=== PATIENT | female | born 1935 | race Caucasian/White ===

== ENCOUNTER → 2017-03-27 | Outpatient (CLI) | payer OTHER, MEDICARE | LOC: BHFA 08:30 | PROVIDERS: ATTEND Internal Medicine Cardiovascular Disease | DX: R55 Syncope and collapse (principal); I10 Essential (primary) hypertension | CPT/HCPCS: 78452; 93017; A9500; J2785 ==

== ENCOUNTER → 2017-07-09 | Outpatient (CLI) | payer OTHER, MEDICARE | LOC: BHFA 16:15 | PROVIDERS: ATTEND Internal Medicine Cardiovascular Disease | DX: I67.9 Cerebrovascular disease, unspecified (principal) ==

== ENCOUNTER → 2017-08-26 | Outpatient (CLI) | payer OTHER, MEDICARE | LOC: FIMAGING 14:02 | PROVIDERS: ATTEND Internal Medicine | DX: Z12.31 Encounter for screening mammogram for malignant neoplasm of breast (principal) ==

== ENCOUNTER → 2017-11-18 | Outpatient (CLI) | payer OTHER, MEDICARE | LOC: FIMAGING 09:34 | PROVIDERS: ATTEND Physician Assistant | DX: R10.11 Right upper quadrant pain (principal); I70.0 Atherosclerosis of aorta; K76.0 Fatty (change of) liver, not elsewhere classified ==

== ENCOUNTER 2017-11-26 13:23 | Inpatient (IN) | payer OTHER, MEDICARE ==
[2017-11-26] MEDS ORDERED: fentaNYL 100 MCG/2 ML INJ IVP ONE (13:32)
--- NOTE | 2017-11-26 13:55 | EDPHY ---
H & P Time Seen by Provider: 11/26/17 13:55 HPI/ROS: CHIEF COMPLAINT: Right hip injury HISTORY OF PRESENT ILLNESS: Patient lost her balance in the garage when her leg got caught on a table, and she fell landing on her right hip. Pain immediately after the fall, moderate at rest but severe with any movement. Unable to stand. Denies other injuries or head injury or loss of consciousness. Pain does not radiate not associated with weakness or numbness in the right foot. REVIEW OF SYSTEMS: Eye: no change in vision ENT: no sore throat Cardiac: no chest pain or syncope Pulmonary: no cough or SOB Abdomen: no vomiting, diarrhea, abdominal pain Musculoskeletal: HPI, previous neuropathy unchanged Skin: no rash Neuro: no headache Constitutional: no fever : no urinary symptoms A comprehensive 10 point review of systems is otherwise negative aside from elements mentioned in the history of present illness. PAST MEDICAL HISTORY: Hypertension and neuropathy Social history: here with 36.3 Temp General Appearance: Alert and conversant, cooperative. Eyes: No scleral icterus. ENT, Mouth: Normal mucous membranes. Respiratory: Normal respiratory effort, breath sounds equal, lungs are clear to auscultation. Cardiovascular: Regular rate and rhythm. Gastrointestinal: Abdomen is soft and non tender. Neurological: Alert, face symmetric, normal motor and sensory in extremities. Specifically normal motor sensory and dorsalis pedis pulse in the right foot. Skin: No bruising or laceration over the hip. Musculoskeletal: No midline spinal tenderness. Normal extremities including right knee lower tib-fib and ankle and foot except for the right hip which has tenderness to any rotation or axial loading. Pelvis is stable. Psychiatric: Not agitated. Emergency Department course/MDM: 1400: PCPs Kam, x-rays reviewed with the patient on the computer system, she does not have a primary orthopedist. The last had a banana some coffee and water at 10:00 a.m. Admission hospitalist, NPO, Dr. Hall orthopedic consultation. Smoking Status: Never smoked Constitutional: Initial Vital Signs Heart Rate 77 11/26/17 13:29 Respiratory Rate 18 11/26/17 13:29 Blood Pressure 173/85 H 11/26/17 13:29 O2 Sat (%) 95 11/26/17 13:29 O2 Delivery Mode Room Air O2 (L/minute) 2 Allergies/Adverse Reactions: environmental Allergy (Uncoded 05/03/09 12:16) Home Medications: Medication Instructions Recorded Duloxetine HCl [Duloxetine HCl] 60 mg PO DAILY 11/26/17 Levothyroxine Sodium 75 mcg PO DAILY 11/26/17 [Levothyroxine Sodium] Olmesartan Medoxomil [Benicar 20 20 mg PO DAILY 11/26/17 mg (*)] Rosuvastatin Calcium [Rosuvastatin 5 mg PO DAILY 11/26/17 Calcium] Medical Decision Making - Diagnostics EKG Interpretation: 12-lead EKG interpreted by me; official reading is in trace master. My interpretation is sinus rhythm rate 81 and normal intervals. Imaging Results: Imaging Impressions Hip X-Ray 11/26/17 13:33 Impression: Right femoral neck fracture with varus angulation. Displaced right femoral neck fracture on x-ray personally interpreted. Imaging: I viewed and interpreted images myself Differential Diagnosis: Differential considered including but not limited to hip contusion, pelvic fracture, hip dislocation, femoral neck fracture. Consult/Admit Bed Type: [place] 1405, [facility] 1414 - Data Points Medications Given: Discontinued Medications Fentanyl (Sublimaze) 100 mcg IVP EDNOW ONE Stop: 11/26/17 13:33 Last Admin: 11/26/17 13:33 Dose: 100 mcg Hydromorphone HCl (Dilaudid) 1 mg IVP EDNOW ONE Stop: 11/26/17 14:07 Last Admin: 11/26/17 14:14 Dose: 1 mg Hydromorphone HCl (Dilaudid) 1 mg IVP EDNOW ONE Stop: 11/26/17 15:00 Last Admin: 11/26/17 15:03 Dose: 1 mg Ondansetron HCl (Zofran) 4 mg IVP EDNOW ONE Stop: 11/26/17 14:07 Last Admin: 11/26/17 14:14 Dose: 4 mg Departure - Departure Disposition: [facility] Acute Clinical Impression: Displaced fracture of right femoral neck Condition: Good
[2017-11-26] MEDS ORDERED: HYDROmorphONE/DILAUDID 1 MG/ML INJ IVP ONE ×2 (14:06→14:59)
[2017-11-26] MEDS ORDERED: ONDANSETRON 4 MG/2 ML VIAL IVP ONE (14:06)
[2017-11-26] MEDS ORDERED: ACETAMINOPHEN 325 MG TAB PO PRN (14:16)
[2017-11-26] MEDS ORDERED: ONDANSETRON 4 MG/2 ML VIAL IVP PRN ×2 (14:16→18:31)
--- NOTE | 2017-11-26 14:38 | CPEKG ---
Heart Rate: 81 RR Interval: 741 P-R Interval: 192 QRSD Interval: 80 QT Interval: 404 QTC Interval: 469 P [place]: 52 QRS [place]: 13 T Wave [place]: 42 EKG Severity - NORMAL ECG - EKG Impression: SINUS RHYTHM Electronically Signed By: Teo Cage 26-Nov-2017 15:05:40
[2017-11-26 14:46] LABS: PLATELET COUNT 242 10^3/uL (150-400)
[2017-11-26 14:56] LABS: INR 0.98 (0.83-1.16); PROTIME(PATIENT) 13.2 SEC (12.0-15.0)
--- NOTE | 2017-11-26 15:09 | GHP ---
[f rep st] HISTORY AND PHYSICAL DATE OF ADMISSION: 11/26/2017 CHIEF COMPLAINT: Displaced right hip fracture. 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 She was in he [employer] garage today, which she stated was cluttered and tripped over the leg of a table. She fell on her right hip and instantly had pain. Right now she describes it as constant and achy, 7/10. She did no t have loss of consciousness or any other prodromal symptoms including chest pain, shortness of breat h, dizziness, or lightheadedness. She walks 30-45 minutes a day without chest pain or shortness of b reath. REVIEW OF SYSTEMS: I completed a 10-point review of systems, negative except as noted in HPI. PAST MEDICAL HISTORY: 1. Hepatic steatosis on recent ultrasound. 2. Moderate atherosclerotic aorta. 3. Hypertension. 4. Neuropathy. 5. Hyperlipidemia. 6. Left thyroid nodule. 7. Hypothyroidism. 8. Menopause. 9. Moderate plaque bilateral carotids, followed yearly with ultrasound (right with 50%-70% stenosis) . 10. GERD. 11. Nuclear stress test March 2017 negative. PAST SURGICAL HISTORY: Two C-sections. SOCIAL HISTORY: Lives in [place] with her , been over 50 years. Has 3 children. Occ asional alcohol. No tobacco or illicits. FAMILY HISTORY: Mother was healthy, in her 90s. Father healthy. ALLERGIES: No known drug allergies. HOME MEDICATIONS: Aspirin, Benicar 20 mg daily, Crestor 5 mg daily, Cymbalta 30 mg daily, levothyrox ine 75 mcg daily, oxybutynin 5 mg daily. PHYSICAL EXAMINATION: VITAL SIGNS: Temperature 36.3, blood pressure 173/85, heart rate 80s, respira tions 14, 95% on 2 L. GENERAL: Lying in bed, no acute distress. HEENT: PERRLA. EOMI. Moist muco us membranes. CV: Regular rate and rhythm. No murmurs, gallops, or rubs. LUNGS: Clear anteriorly . ABDOMEN: Soft, nontender, nondistended. Positive bowel sounds. : No [place]. MUSCULOSKELETAL: Right leg externally rotated. Tender over her hip. NEURO: 2-12 intact. PSYCH: Alert and orient ed x3. LABORATORY DATA: Pending. ASSESSMENT/PLAN: 1. Right hip fracture due to mechanical fall: Admit for pain control with IV morphine, Dr. Isabel robles Orthopedics will evaluate and likely take to surgery tonight. Scheduled Tylenol. Physical therapy /occupational therapy. 2. Hypertension: This is elevated here secondary to pain. We will resume lisinopril tomorrow. 3. Neuropathy: No history of diabetes. 4. Hyperlipidemia: Statin. 5. Hypothyroidism: Levothyroxine. 6. Moderate carotid bilateral plaque: She is followed by Dr. Rodriguez. She has chosen to follow mo annual ultrasounds. 7. Diet: Nothing by mouth. 8. Deep vein thrombosis prophylaxis: Sequential compression devices. 9. Disposition: Patient warrants inpatient admission given acute hip fracture warranting surgical i ntervention and IV pain control. /[id number]/MODL
[2017-11-26] MEDS ORDERED: LR 1,000 ML IV ONE (15:15)
[2017-11-26] MEDS ORDERED: DEXAMETHASONE 4 MG/ML VIAL IVP ONE (16:15)
[2017-11-26] MEDS ORDERED: FAMOTIDINE 20 MG TAB PO ONE (16:15)
[2017-11-26] MEDS ORDERED: ceFAZolin 2 GM/DEXTROSE 100 ML IV ONE (16:15)
[2017-11-26] MEDS ORDERED: POVIDONE-IODINE 20 ML in SODIUM CL IRRIG SOLUTION 500 ML IRR ONE (16:15)
[2017-11-26] MEDS ORDERED: TRANEXAMIC ACID 1,000 MG in NS 100 ML IV ONE (16:15)
[2017-11-26] MEDS ORDERED: ROPIVACAINE 0.2% 80 MG, EPINEPHrine 0.2 MG, KETOROLAC TROMETHAMINE 30 MG in SYRINGE 0 ML IU ONE (16:15)
[2017-11-26] MEDS ORDERED: POVIDONE-IODINE 30 GM OINTTUBE TP ONE (16:22)
[2017-11-26] MEDS ORDERED: fentaNYL 250 MCG/5 ML INJ ONE (16:54)
[2017-11-26] MEDS ORDERED: PROPOFOL/EMULSION 500 MG/50 ML BOTTLE IV ONE (16:54)
--- NOTE | 2017-11-26 16:54 | GCON ---
[f rep st] CONSULTATION DATE OF CONSULTATION: 11/26/2017 CHIEF COMPLAINT: Right hip pain. HISTORY OF PRESENT ILLNESS: An 82-year-old female with history of hypertension, moderate carotid amaury nosis, hypothyroidism, presents with right hip pain, inability to ambulate after a fall inside her [place] rage. Upon the fall, she had instant pain and inability to weight bear. Pain is constant, 7/10, loc ated to the lateral anterior aspects of the hip. She denies loss of consciousness. She denies fever s, chills, nausea, vomiting, chest pain, shortness of breath, numbness, tingling. She typically walk s 30-45 minutes per day. REVIEW OF SYSTEMS: Ten-point review of systems is negative, except for HPI. PAST MEDICAL HISTORY: As above, including hepatic steatosis, according to recent ultrasound; moderat e atherosclerotic aorta; hypertension; neuropathy; hyperlipidemia; hypothyroidism; carotid stenosis; GERD. PAST SURGICAL HISTORY: Includes a x2. SOCIAL HISTORY: The patient is originally from [facility], her from [place]. They live in [facility] and have been for 50 years. She denies alcohol, tobacco, or drug use. ALLERGIES: No known drug allergies. HOME MEDICATIONS: Include aspirin, Benicar 20 mg daily, Crestor 5 mg a day, Cymbalta 30 mg, levothyr oxine 75 mcg daily, oxybutynin 5 mg daily. PHYSICAL EXAM: VITAL SIGNS: Temperature is 36.3, blood pressure 173/85, heart rate 80s, respiration rate 14, 95% on 2 L. GENERAL: She is lying in the hospital bed, in no acute distress. HEENT: Nor mocephalic, atraumatic. She has easy and nonlabored breathing. ABDOMEN: Soft and nontender. EXTRE MITIES: Her right lower extremity is shortened and externally rotated. She has tenderness over the greater trochanter. Sensation is intact to light touch from L3 to S1. She has motor intact to EHL, FHL, tibialis anterior, gastrocsoleus. She has palpable DP and PT pulses. LABORATORY DATA: Hemoglobin is 14.4, hematocrit 42.6, white blood cell 13.72, platelets 242. IMAGING: X-ray reveals a displaced femoral neck [place] IV fracture. ASSESSMENT/PLAN: An 82-year-old female with a displaced right femoral neck fracture. We discussed t he consequences of operative and nonoperative treatment and the increased morbidity and mortality wit h nonoperative treatment. There is also increased morbidity and mortality after hip fracture in [facility]; however, this is significantly decreased by urgent surgical fixation and weightbearing as quickl y as possible. Risks and benefits of the procedure, the inherent risks of anesthesia, as well as ujanito eris, including bleeding, infection, damage to surrounding anatomic structures, infection, and a tota l joint replacement would likely require additional surgery, one, possibly two. We discussed the pos sibility of sciatic nerve injury and its consequences. Also, the risk of blood clots or DVT. We als o discussed the possibility of dislocation or instability fracture during or after the procedure, leg length discrepancy, Heterotopic ossification, implant allergy. The patient understood and agreed, w ished to proceed. Consent was signed. /[id number]/MODL
--- NOTE | 2017-11-26 16:55 | PDANEPAE ---
ANE History of Present Illness 82 yo for elsa ANE Past Medical History - Cardiovascular History Hx Hypertension: Yes Hx Arrhythmias: No Hx Chest Pain: No Hx Coronary Artery / Peripheral Vascular Disease: No Hx CHF / Valvular Disease: No Hx Palpitations: No - Pulmonary History Hx COPD: No Hx Asthma/Reactive Airway Disease: No Hx Recent Upper Respiratory Infection: No Hx Oxygen in Use at Home: No Hx Sleep Apnea: No - Neurologic History Hx Cerebrovascular Accident: No Hx Seizures: No Hx Dementia: No - Endocrine History Hx Diabetes: No - Renal History Hx Renal Disorders: No - Liver History Hx Hepatic Disorders: No - Neurological & Psychiatric Hx Hx Neurological and Psychiatric Disorders: No - Cancer History Hx Cancer: Yes Cancer History Comment: uterine cancer with hysterectomy - Congenital Disorder History Hx Congenital Disorders: No - GI History Hx Gastrointestinal Disorders: Yes Gastrointestinal History Comment: acid reflux & no meds - Surgical History Prior Surgeries: hysterectomy 20 years agol. 2 c-sections. bilat cataract surgeries approx 2007 ANE Review of Systems Review of Systems: - Exercise capacity METS (RN): 4 METS ANE Patient History - Allergies Allergies/Adverse Reactions: environmental Allergy (Uncoded 05/03/09 12:16) - Home Medications Home Medications: Duloxetine HCl [Duloxetine HCl] 60 mg PO DAILY 11/26/17 [Last Taken 11/26/17] Levothyroxine Sodium [Levothyroxine Sodium] 75 mcg PO DAILY 11/26/17 [Last Taken 11/26/17] Olmesartan Medoxomil [Benicar 20 mg (*)] 20 mg PO DAILY 11/26/17 [Last Taken ] Rosuvastatin Calcium [Rosuvastatin Calcium] 5 mg PO DAILY 11/26/17 [Last Taken 11/26/17] - NPO status NPO Since - Liquids (Date): 11/26/17 NPO Since - Liquids (Time): 10:00 NPO Since - Solids (Date): 11/26/17 NPO Since - Solids (Time): 10:00 - Smoking Hx Smoking Status: Never smoked ANE Labs/Vital Signs - Labs Result Diagrams: 11/26/17 14:30 11/26/17 14:30 - Vital Signs Blood Pressure: 162/77 Heart Rate: 91 Respiratory Rate: 16 O2 Sat (%): 93 Height: 5 ft 4 in Weight: 65.317 kg ANE Physical Exam - Airway Mallampati Score: Class 2 Mouth exam: normal dental/mouth exam - Pulmonary Pulmonary: no respiratory distress - Cardiovascular Cardiovascular: regular rate and rhythym ANE Anesthesia Plan Anesthesia Plan: general endotracheal anesthesia
[2017-11-26] MEDS: ceFAZolin 1 GM/5 ML SYR ONE ×2 (17:45→17:50)
[2017-11-26] MEDS ORDERED: NALOXONE HCL 0.4 MG/ML INJ IVP PRN (18:31)
[2017-11-26] MEDS ORDERED: fentaNYL 100 MCG/2 ML INJ IVP PRN (18:31)
[2017-11-26] MEDS ORDERED: HYDROmorphONE/DILAUDID 2 MG/ML INJ IVP PRN (18:31)
[2017-11-26] MEDS ORDERED: PROMETHAZINE HCL 25 MG/ML INJ IVP PRN (18:44)
[2017-11-26] MEDS ORDERED: CYCLOBENZAPRINE 10 MG TAB PO PRN (18:44)
[2017-11-26] MEDS ORDERED: MAGNESIUM HYDROXIDE 30 ML UDCUP PO PRN (18:44)
[2017-11-26] MEDS ORDERED: oxyCODONE IR 5 MG TAB PO PRN (18:44)
[2017-11-26] MEDS ORDERED: diphenhydrAMINE 25 MG CAP PO PRN (18:44)
[2017-11-26] MEDS ORDERED: TEMAZEPAM 15 MG CAP PO PRN (18:44)
[2017-11-26] MEDS ORDERED: DIPHENOXYLATE/ATROPINE LOMOTIL 1 TAB PO PRN (18:44)
[2017-11-26] MEDS ORDERED: LACTULOSE 20 GM/30 ML UDCUP PO PRN (18:44)
[2017-11-26] MEDS ORDERED: POLYETHYLENE GLYCOL 3350 17 GM PKT PO PRN (18:44)
[2017-11-26] MEDS ORDERED: BISACODYL 10 MG SUPP PR PRN (18:44)
--- NOTE | 2017-11-26 18:49 | POSTOPPROG ---
Post Op Note Date of Operation: 11/26/17 Surgeon: Jim Hall Director Of Academic: Mitchell Headley MD, Jayy Messer CSA Anesthesiologist: David THURSTON Anesthesia: GET(General Endotracheal) Pre-op Diagnosis: R hip femoral neck fracture Post-op Diagnosis: same Procedure: R posterior approach JASS Inf/Abcess present in the surg proc area at time of surgery?: No EBL: 100-500 (300) Complications: none
[2017-11-26] MEDS ORDERED: LR 1,000 ML IV SCH (19:00)
[2017-11-26] MEDS ORDERED: fentaNYL 100 MCG/2 ML INJ ONE (19:40)
[2017-11-27] MEDS: ACETAMINOPHEN 325 MG TAB PO SCH ×5 (00:06→22:14)
[2017-11-27] MEDS: FAMOTIDINE 20 MG TAB PO SCH ×3 (00:39→22:14)
[2017-11-27] MEDS: ASPIRIN 81 MG CHEWABLE TAB PO SCH ×3 (00:39→22:14)
[2017-11-27] MEDS: SENNOSIDES/DOCUSATE SODIUM TAB PO SCH ×3 (00:41→22:14)
[2017-11-27] MEDS: ceFAZolin 2 GM/DEXTROSE 100 ML IV SCH ×2 (02:01→11:26)
[2017-11-27] MEDS ORDERED: NS 1,000 ML IV SCH (08:00)
[2017-11-27] MEDS ORDERED: ROSUVASTATIN CALCIUM 5 MG PO SCH (09:00)
--- NOTE | 2017-11-27 09:42 | PDMN ---
Medical Necessity Medical necessity: Pt meets IP criteria per MD; est los >2 mn for eval/tx of R hip fx r/t mechanical fall; admit for surgical intervention, further monitoring , IV pain control, IVFs & therapies; hx HTN, neuropathy & moderate carotid bilateral plaque; per H&P & order 11/26/17
[2017-11-27] MEDS: DULoxetine 60 MG CAP PO SCH (11:22)
[2017-11-27] MEDS: ROSUVASTATIN CALCIUM 10 MG TAB PO SCH (11:22)
[2017-11-27] MEDS: LEVOTHYROXINE 75 MCG TAB PO SCH (11:40)
--- NOTE | 2017-11-27 12:49 | ASMTCASEMG ---
Living Arrangements What is your living Answers: With Spouse arrangement? Who do you live with? Type Of Residence What kind of residence do Answers: House you live in? Discharge Plan Comments Coordination Status Comments Notes: Pt is a 82 y/o female admitted for a right femoral neck fracture. CM met w/ pt and for dispo planning. PT is recommending HC. Pt would like CM to set up HC through [facility]. Referral made to [facility] and they are able to accept. CM to follow. Plan: [facility]; PT, OT Date Signed: 11/27/2017 12:49 PM Electronically Signed By:JULIO CESAR Bui
--- NOTE | 2017-11-27 14:05 | HOSPPROG ---
Hospitalist Progress Note Assessment/Plan: Patient is an 82-year-old female with a history of hypertension, moderate carotid stenosis who presented with right hip pain after she sustained a mechanical fall. It was noted that she has displaced right hip fracture * right femoral neck fracture -postop day # 1 JASS * hypertension -had some hypotension this morning and gave fluids -hold Benicar * hyperlipidemia -statin * hypothyroidism -Synthroid * moderate carotid bilateral plaque -followed by Dr. Rodriguez *dvt prophylaxis: LMWH *Plan: patient feels great, wants to go home. Encouraged to stay another night, check labs in a.m. to assure stability. Spoke w CM that she will need home care. Subjective: Lilly feels great, wants to go home. Objective: Vital Signs Temp Pulse Resp BP Pulse Ox 36.7 C 81 16 118/47 L 92 11/27/17 11:25 11/27/17 11:25 11/27/17 11:25 11/27/17 11:25 11/27/17 11:25 Laboratory Results 11/27/17 04:50 11/26/17 14:30 11/26/17 11/27/17 11/28/17 05:59 05:59 05:59 Intake Total 2070 Output Total 400 Balance 1670 PT 13.2 SEC (12.0-15.0) 11/26/17 14:30 INR 0.98 (0.83-1.16) 11/26/17 14:30 - Physical Exam Constitutional: no apparent distress, appears nourished, not in pain Eyes: PERRL Ears, Nose, Mouth, Throat: hearing normal Cardiovascular: regular rate and rhythym Respiratory: no respiratory distress Gastrointestinal: normoactive bowel sounds Skin: warm, No normal color (pale) Musculoskeletal: generalized weakness Neurologic: AAOx3 Psychiatric: interacting appropriately ICD10 Worksheet Patient Problems: Problems Problem Status Onset Displaced fracture of right femoral neck Acute
--- NOTE | 2017-11-27 14:50 | SOAPPROG ---
SOAP Progress Note Assessment/Plan: Assessment: Postop day 1 status post right posterior approach total hip arthroplasty for femoral neck fracture Plan: Weight bear as tolerated with assistance, PT OT Posterior hip precautions Analgesics as needed, wean off narcotics as tolerated IS 10 times per hour SCD, foot pump, aspirin 81mg BID for DVT prophylaxis, we will consider Lovenox if patient's mobility status decreases Dispo: Possible DC home with home health tomorrow 11/27/17 14:46 Subjective: No acute events overnight. Significantly less pain decreased from yesterday to today. she has been ambulating multiple times today in the hallways with a walker. Denies fevers chills nausea vomiting chest pain shortness of breath numbness or tingling Objective: Vital Signs Temp Pulse Resp BP Pulse Ox 36.7 C 81 16 118/47 L 92 11/27/17 11:25 11/27/17 11:25 11/27/17 11:25 11/27/17 11:25 11/27/17 11:25 Laboratory Results 11/27/17 04:50 11/26/17 14:30 11/26/17 11/27/17 11/28/17 05:59 05:59 05:59 Intake Total 2070 Output Total 400 Balance 1670 PT 13.2 SEC (12.0-15.0) 11/26/17 14:30 INR 0.98 (0.83-1.16) 11/26/17 14:30 Awake alert and oriented x3 No acute distress Easy nonlabored breathing Right hip: Dressing clean dry intact no erythema drainage or signs of infection Mild ecchymosis since swelling Thigh and calf compartments soft compressible nontender Sensation intact to light touch from L3-S1 Motor intact to EHL FHL tibialis at tibialis anterior gastrocsoleus Palpable DP PT pulses - Time Spent With Patient Time Spent With Patient: 15 - Pending Discharge Pending Discharge Within 24 Hours: Yes Pending Discharge Date: 11/28/17 Pending Discharge Time: 11:00 ICD10 Worksheet Patient Problems: Problems Problem Status Onset Displaced fracture of right femoral neck Acute
[2017-11-28] MEDS: LEVOTHYROXINE 75 MCG TAB PO SCH (05:49)
[2017-11-28] MEDS: ACETAMINOPHEN 325 MG TAB PO SCH ×3 (05:49→22:24)
[2017-11-28] MEDS: DULoxetine 60 MG CAP PO SCH (08:39)
[2017-11-28] MEDS: ROSUVASTATIN CALCIUM 10 MG TAB PO SCH (08:39)
[2017-11-28] MEDS: ASPIRIN 81 MG CHEWABLE TAB PO SCH ×2 (08:39→22:24)
[2017-11-28] MEDS: SENNOSIDES/DOCUSATE SODIUM TAB PO SCH ×3 (08:40→22:28)
[2017-11-28] MEDS: FAMOTIDINE 20 MG TAB PO SCH (08:41)
[2017-11-28] MEDS ORDERED: ENOXAPARIN 30 MG/0.3 ML SYR SC SCH (09:00)
--- NOTE | 2017-11-28 09:20 | SOAPPROG ---
SOAP Progress Note Assessment/Plan: Assessment: Postop day 2 status post right posterior approach total hip arthroplasty for femoral neck fracture Plan: Weight bear as tolerated with assistance, PT OT Posterior hip precautions Analgesics as needed, wean off narcotics as tolerated IS 10 times per hour SCD, foot pump, aspirin 81mg BID for DVT prophylaxis Dispo: Possible DC home with home health/PT today 11/27/17 14:46 11/28/17 09:17 Subjective: No acute events overnight. Having slightly more pain today than yesterday. Ambulating very well with physical therapy still. But it is still significantly improved from initial injury. Has not had a bowel movement. Denies fevers chills nausea vomiting chest pain shortness of breath numbness tingling. Objective: Vital Signs Temp Pulse Resp BP Pulse Ox 36.6 C 74 16 97/42 L 96 11/28/17 04:00 11/28/17 04:00 11/28/17 04:00 11/28/17 04:00 11/28/17 04:00 Laboratory Results 11/28/17 04:15 11/28/17 04:15 11/27/17 11/28/17 11/29/17 05:59 05:59 05:59 Intake Total 2070 1000 Output Total 400 Balance 1670 1000 PT 13.2 SEC (12.0-15.0) 11/26/17 14:30 INR 0.98 (0.83-1.16) 11/26/17 14:30 Awake alert and oriented x3, no acute distress Easy nonlabored breathing Right hip: Dressing clean dry intact no erythema drainage or signs of infection Mild ecchymosis at distal aspect of incision, minimal swelling Thigh and calf compartments soft compressible nontender Sensation intact to light touch from L3-S1 Motor intact to EHL FHL tibialis anterior gastrocsoleus Palpable DP PT pulses - Time Spent With Patient Time Spent With Patient: 15 ICD10 Worksheet Patient Problems: Problems Problem Status Onset Displaced fracture of right femoral neck Acute
--- NOTE | 2017-11-28 10:37 | HOSPPROG ---
Hospitalist Progress Note Assessment/Plan: Patient is an 82-year-old female with a history of hypertension, moderate carotid stenosis who presented with right hip pain after she sustained a mechanical fall. It was noted that she has displaced right hip fracture. This is my first encounter with patient. Chart reviewed. * right femoral neck fracture -postop day #2 JASS -pt is noting difficulty getting up on her own without assistance and does not feel she can navigate stairs -she will stay for ongoing PT/OT and possible placement * hypertension -Benicar on hold due to some hypotensive readings -not dizzy or presyncopal *fall -had a fall off the toilet last night due to gait instability -needs ongoing PT/OT * hyperlipidemia -statin * hypothyroidism -Synthroid * moderate carotid bilateral plaque -followed by Dr. Rodriguez -ASA and statin *dvt prophylaxis: ortho prefers only ASA *ADD -will keep inpatient due to fall, low BP, and gait instability requiring inpatient PT/OT Subjective: Pain controlled with APAP. Not dizzy or dyspneic. Objective: Vital Signs Temp Pulse Resp BP Pulse Ox 97.9 F 83 16 99/43 L 96 11/28/17 04:00 11/28/17 10:21 11/28/17 04:00 11/28/17 10:21 11/28/17 04:00 Laboratory Results 11/28/17 04:15 11/28/17 04:15 11/27/17 11/28/17 11/29/17 05:59 05:59 05:59 Intake Total 2070 1000 Output Total 400 Balance 1670 1000 PT 13.2 SEC (12.0-15.0) 11/26/17 14:30 INR 0.98 (0.83-1.16) 11/26/17 14:30 - Physical Exam Constitutional: no apparent distress, not in pain Eyes: anicteric sclera Ears, Nose, Mouth, Throat: moist mucous membranes Cardiovascular: regular rate and rhythym, no murmur, rub, or gallop Respiratory: no respiratory distress, no rales or rhonchi Gastrointestinal: normoactive bowel sounds, other (mild distention) Skin: warm, normal color Neurologic: AAOx3 Psychiatric: interacting appropriately, not anxious ICD10 Worksheet Patient Problems: Problems Problem Status Onset Displaced fracture of right femoral neck Acute
--- NOTE | 2017-11-28 14:43 | CPEKG ---
Heart Rate: 82 RR Interval: 732 P-R Interval: 172 QRSD Interval: 86 QT Interval: 392 QTC Interval: 458 P [place]: 56 QRS [place]: 24 T Wave [place]: 63 EKG Severity - ABNORMAL ECG - EKG Impression: SINUS RHYTHM EKG Impression: BORDERLINE T ABNORMALITIES, ANT-LAT LEADS Electronically Signed By: Robert Hernandez 30-Nov-2017 10:25:06
[2017-11-29] MEDS: FAMOTIDINE 20 MG TAB PO SCH ×2 (00:26→09:52)
[2017-11-29] MEDS: ONDANSETRON DISINTEGRATING 4 MG TAB PO PRN ×3 (05:45→16:12)
[2017-11-29] MEDS: LEVOTHYROXINE 75 MCG TAB PO SCH (06:39)
[2017-11-29] MEDS: ACETAMINOPHEN 325 MG TAB PO SCH ×2 (06:40→15:21)
[2017-11-29 07:54] VITALS: BP 99/59
--- NOTE | 2017-11-29 09:31 | SOAPPROG ---
SOAP Progress Note Assessment/Plan: Assessment: Postop day 3 status post right posterior approach total hip arthroplasty for femoral neck fracture Plan: Negative Cardiac work-up yesterday. Pt feeling well. Weight bear as tolerated with assistance, PT OT Posterior hip precautions Analgesics as needed, wean off narcotics as tolerated IS 10 times per hour SCD, foot pump, aspirin 81mg BID vs Lovenox 40mg Daily for DVT prophylaxis pending overall risk assessment Dispo: Possible DC to SNF/[facility] today 11/29/17 09:26 Subjective: No acute events overnight. Patient admits she did not disclose that she slipped off the toilet two days ago. Says it was nothing like the fall she had that broke her hip but she did have difficulty getting back up. yesterday patient had a workup for nonspecific chest pain. Patient states she did not have chest pain specifically but overall felt "lousy." Did have some nausea which improved with cheyenne ofelia. Feeling well today. Pain much improved. States she is ambulating very well with physical therapy and a walker. Denies fevers chills chest pain shortness of breath numbness tingling Objective: Vital Signs Temp Pulse Resp BP Pulse Ox 37.2 C 82 16 99/59 L 92 11/29/17 07:53 11/29/17 07:53 11/29/17 07:53 11/29/17 07:53 11/29/17 07:53 Laboratory Results 11/28/17 04:15 11/28/17 04:15 11/28/17 11/29/17 11/30/17 05:59 05:59 05:59 Intake Total 1000 1700 Balance 1000 1700 PT 13.2 SEC (12.0-15.0) 11/26/17 14:30 INR 0.98 (0.83-1.16) 11/26/17 14:30 Awake alert and oriented x3, no acute distress Easy nonlabored breathing Right hip: Dressing clean dry intact no erythema drainage or signs of infection Mild ecchymosis at distal aspect of incision, minimal swelling Thigh and calf compartments soft compressible nontender Sensation intact to light touch from L3-S1 Motor intact to EHL FHL tibialis anterior gastrocsoleus Palpable DP PT pulses - Time Spent With Patient Time Spent With Patient: 10 ICD10 Worksheet Patient Problems: Problems Problem Status Onset Displaced fracture of right femoral neck Acute
[2017-11-29] MEDS: DULoxetine 60 MG CAP PO SCH (09:52)
[2017-11-29] MEDS: ASPIRIN 81 MG CHEWABLE TAB PO SCH (09:52)
[2017-11-29] MEDS: ROSUVASTATIN CALCIUM 10 MG TAB PO SCH (09:53)
[2017-11-29] MEDS: SENNOSIDES/DOCUSATE SODIUM TAB PO SCH ×2 (09:53→11:02)
--- NOTE | 2017-11-29 10:41 | PDIAF ---
- Diagnosis Code Status: Full Code - Medication Management Discharge Medications: Medications to Continue on Transfer Duloxetine HCl 60 mg PO DAILY 11/26/17 [Last Taken 11/26/17] Levothyroxine Sodium 75 mcg PO DAILY 11/26/17 [Last Taken 11/26/17] Rosuvastatin Calcium 5 mg PO DAILY 11/26/17 [Last Taken 11/26/17] Acetaminophen [Tylenol 325mg (*)] 650 mg PO Q8H tab 11/29/17 [Last Taken Unknown] Aspirin [Aspirin 81mg (*)] 81 mg PO BID tab.chew 11/29/17 [Last Taken Unknown] Famotidine [Pepcid 20 MG (*)] 20 mg PO BID tab 11/29/17 [Last Taken Unknown] Ondansetron Odt [Zofran Odt 4 mg (*)] 4 mg PO Q4HRS PRN #7 tab 11/29/17 [Last Taken Unknown] Sennosides/Docusate Sodium [Senokot-S] 1 - 2 tab PO BID tab 11/29/17 [Last Taken Unknown] celeCOXIB [Celebrex (*)] 200 mg PO DAILY #30 cap 11/29/17 [Last Taken Unknown] Discharge Medications: Refer to the Discharge Home Medication list for PRN reason. - Orders Services needed: Home Care, Physical Therapy, Occupational Therapy Home Care Face to Face: I certify that this patient was under my care and that I had the required wfhs-se-xaoh encounter meeting the encounter requirements on the discharge day. My findings support the fact that the patient is homebound as defined in Home Care Face to Face Continued: CMS Chapter 7 Medicare Benefits Manual 30.1.1 , The condition of the patient is such that there exists a normal inability to leave home and consequently, leaving home would require a considerable and taxing effort. Diet Recommendation: no restrictions on diet Diet Texture: Regular Texture Diet Additional Instructions: see handout, WBAT, posterior hip precautions, f/u 2wks - Follow Up Care Current Providers and Referrals: Patient,NotPresent [Unknown] - As per Instructions Jim Hall MD [Medical Doctor] - follow up in 2 weeks
--- NOTE | 2017-11-29 12:26 | PDIAF ---
- Diagnosis Code Status: Full Code - Medication Management Discharge Medications: Medications to Continue on Transfer Duloxetine HCl 60 mg PO DAILY 11/26/17 [Last Taken 11/26/17] Levothyroxine Sodium 75 mcg PO DAILY 11/26/17 [Last Taken 11/26/17] Rosuvastatin Calcium 5 mg PO DAILY 11/26/17 [Last Taken 11/26/17] Acetaminophen [Tylenol 325mg (*)] 650 mg PO Q8H tab 11/29/17 [Last Taken Unknown] Aspirin [Aspirin 81mg (*)] 81 mg PO BID tab.chew 11/29/17 [Last Taken Unknown] Famotidine [Pepcid 20 MG (*)] 20 mg PO BID tab 11/29/17 [Last Taken Unknown] Ondansetron Odt [Zofran Odt 4 mg (*)] 4 mg PO Q4HRS PRN #7 tab 11/29/17 [Last Taken Unknown] Sennosides/Docusate Sodium [Senokot-S] 1 - 2 tab PO BID tab 11/29/17 [Last Taken Unknown] celeCOXIB [Celebrex (*)] 200 mg PO DAILY #30 cap 11/29/17 [Last Taken Unknown] Discharge Medications: Refer to the Discharge Home Medication list for PRN reason. - Orders Services needed: Physical Therapy, Occupational Therapy Diet Recommendation: no restrictions on diet Diet Texture: Regular Texture Diet Additional Instructions: see handout, WBAT, posterior hip precautions, f/u 2wks - Follow Up Care Current Providers and Referrals: Jim Hall MD [Medical Doctor] - follow up in 2 weeks Patient,NotPresent [Unknown] - As per Instructions
--- NOTE | 2017-11-29 16:27 | GDS ---
[f rep st] DISCHARGE SUMMARY DISCHARGE DIAGNOSES: 1. Right femoral neck fracture, status post mechanical fall, status post total hip replacement. 2. Hypertension with hold of medications in this admission due to some hypotensive readings. 3. Nausea, likely related to medications in this admission, improved at time of discharge. 4. History of moderate carotid arterial disease. 5. Dyslipidemia. 6. Hypothyroidism. 7. History of neuropathy. 8. History of left thyroid nodule. 9. Two prior sections. CONSULTATIONS: Dr. Jim Hall of Orthopedics. PROCEDURES: 1. 11/26/2017, hip x-ray. 2. 11/26/2017, pelvic x-ray. 3. 11/27/2017, right JASS. BRIEF HISTORY: Please see dictated H and P by Dr. Chelsie Jackson for complete details. In brief, Th e patient is an 82-year-old female with a history of hypertension, moderate carotid arterial disease who presented after a mechanical fall, tripping on the leg of a table in her garage. She noted pain in her hip afterwards and was found to have a displaced right hip fracture. She proceeded to surgica l THR. She has been evaluated by PT and OT with recommendations for SNF rehab. She is being transfe rred to [facility] today. HOSPITAL COURSE: 1. Mechanical fall, status post right femoral neck fracture, status post hip replacement. She is gi toni hip precautions and will be participating in PT and OT in the rehab setting. She is to follow up with Dr. Hall in 2 weeks time. 2. Hypertension. Her blood pressures have been low and her home Benicar has been on hold. 3. Mechanical fall. In this admission, she denied any pain with this fall, but had gait instability , which resulted in her falling off the toilet yesterday. 4. Moderate carotid disease. She is to continue her aspirin and statin therapy. RESULTS PENDING: None. PHYSICAL EXAMINATION: VITAL SIGNS: On day of discharge, blood pressure 99/59, heart rate 82, respir ations 16, O2 saturation 92% on 1 L/minute, temp of 98.9 degrees Fahrenheit. GENERAL: She is a plea abdoulaye female in no apparent distress. HEENT: Normocephalic, atraumatic. Eyes: PERRL. HEART: Regu lar rate and rhythm. LUNGS: Clear. LABORATORY DATA: CBC with hemoglobin 10.7, hematocrit 33.4. BMP with sodium 137, potassium 5, chlor guille 109, CO2 21, BUN 32, creatinine 0.9, glucose 116. Troponin less than 0.012. DIET: Per previous. ACTIVITY: PT and OT in the rehab setting. DISCHARGE MEDICATIONS: Please see medication reconciliation. DISCHARGE INSTRUCTIONS: 1. Hip precautions. 2. Follow upwith Dr. Hall. Please note that greater than 30 minutes was spent on discharge, coordination of care. /[id number]/MODL
--- NOTE | 2017-11-29 18:07 | ASMTLACE ---
DANIELLAE Length of stay for Answers: 3 days current admission Acuity / Level of Answers: Yes Care: Did the patient have an inpatient admission? Comorbidities - select Answers: Other Notes: HTN, carotid all that apply stenosis, hyperlipidemi a # of Emergency department Answers: 1-2 visits in the last 6 months Score: 8 Date Signed: 11/29/2017 06:06 PM Electronically Signed By:Lamar Medrano RN
--- NOTE | 2017-11-29 18:15 | ASDISCHSUM ---
Discharge Information Plan Status:SNF Medically Cleared to Leave:11/29/2017 Discharge Date:11/29/2017 CM D/C Disposition:Fdc Facility ADT D/C Disposition:Fdc Facility Projected Discharge Date:11/29/2017 11:00 AM Transportation at D/C:Wheelchair Van Discharge Delay Reason: Follow-Up Date:11/29/2017 11:00 AM Discharge Slot:3 - 18:01 pm - 12:00 am Final Diagnosis:Right femoral neck fracture, HTN, carotid, stenosis, hyperlipidemia, hypothyroid, AD D Placement Information Referral Type:*Home Health Care Services Referral ID:[id number] Provider Name: Address 1: Phone Number: Address 2: Fax Number: City: Selection Factors:Patient/Family Choice State: Referral Type:*Residential/SNF Referral ID:[id number] [facility] Address 1:[address] Phone Number: Address 2: Fax Number: [facility]:[place] Selection Factors: State:[place] Patient Contact Information Contact Name:MAMTA Relationship: Address:[address] Work Phone: City:[facility] Phone: [facility]/Zip Code:[place] [address] Email: Financial Information Financial Class:Medicare Primary Plan Desc:MEDICARE INPATIENT Primary Plan Number:[id number] Secondary Plan Desc:REGINO/DANILO SUPPLEMENT Secondary Plan Number:[id number] Assessment Information LACE LACE Length of stay for Answers: 3 days current admission Acuity / Level of Answers: Yes Care: Did the patient have an inpatient admission? Comorbidities - select Answers: Other Notes: HTN, carotid all that apply stenosis, hyperlipidemi a # of Emergency department Answers: 1-2 visits in the last 6 months Score: 8 Date Signed: 11/29/2017 06:06 PM Electronically Signed By:Lamar Medrano RN [facility] Initial CM Assessment Living Arrangements What is your living Answers: With Spouse arrangement? Who do you live with? Type Of Residence What kind of residence do Answers: House you live in? Discharge Plan Comments Coordination Status Comments Notes: Pt is a 82 y/o female admitted for a right femoral neck fracture. CM met w/ pt and for dispo planning. PT is recommending HC. Pt would like CM to set up HC through [facility]. Referral made to [facility] and they are able to accept. CM to follow. Plan: [facility]; PT, OT Date Signed: 11/27/2017 12:49 PM Electronically Signed By:JULIO CESAR Bui Case Management Discharge Plan Note Case Management Discharge Discharge Order Complete? Answers: Yes Patient to Obtain Answers: Other Notes: via [facility] Medications Transportation Arranged Answers: Other Notes: Wheelchair transport arranged and to be paid for by [employer] Transport will Pick (Date 11/29/2017 07:00 PM & Time) SANDRAALA Complete Answers: No Notes: N/A Case Management Transport Answers: Yes Form Complete Faxed Final Orders Answers: Yes Notes: Sent via [employer], confirmed receipt with Carolina at [employer] Agency/Facility Transfer Answers: Yes Notes: Sent via Report Printed & Faxed to [employer], confirmed Receiving Agency receipt with Carolina at [employer] Family Notified Answers: Yes Notes: Dghtr and at bedside Discharge Comments Notes: Reviewed chart, spoke with Zandra RN regarding discharge plan of care, pt's progress. Per Zandra, pt to discharge home with home health care today and family support. Call placed to Scot at [facility]. Per Scot, able to accept pt for a start of care on Thursday11/30/17. Met with pt and family to provide update. Pt's requesting pt discharge to a SNF today. Discussed with Azalea Khanna PA-C; orders changed. Referrals sent to [facility], [facility], [facility], [facility] and [facility] at pt and family request. Spoke at length with pt's dghtr. Family requesting [facility] for ease of access to [facility]. Call placed to [facility] at [facility], per [facility] bed available, able to accept. [facility] to arrange and pay for wheelchair transport. Transport to arrive at 19:00; facesheet printed for driver license agent. Update provided to pt and pt's dghtr Susan . Pt and dghtr with several questions regarding transfer - questions answered. IM signed, placed in chart; copy provided to pt. Pt to follow up as directed. CM available for any further issues or concerns. Discharge Plan: [facility] Date Signed: 11/29/2017 06:14 PM Electronically Signed By:Lamar Medrano RN Intervention Information Intervention Type:*IM-Signed Date of Service:11/29/2017 06:05 PM Patient Type:Inpatient Staff Member:IVETTE Medrano Taylor Hours: Discipline: Severity: Comment:
--- NOTE | 2017-12-03 11:35 | GOP ---
[f rep st] OPERATIVE REPORT DATE OF OPERATION: 11/26/2017 SURGEON: Jim Hall MD METAL NUMERICAL TOOL PROGRAMMER: habilitation assistant, Mitchell Headley MD Second assist, Jayy Messer CFA Assistants were required due to the complexity of the case, the patient's condition, for positioning, prepping and draping, retraction and closure. ANESTHESIA: General. PREOPERATIVE DIAGNOSIS: Right displaced femoral neck fracture. POSTOPERATIVE DIAGNOSIS: Right displaced femoral neck fracture. PROCEDURE PERFORMED: Left posterior approach total hip arthroplasty. FINDINGS: SPECIMENS: None. ESTIMATED BLOOD LOSS: 300 cc. INDICATIONS: Patient had a mechanical fall landing on her right hip sustaining a displaced femoral n bienvenido fracture. We discussed in depth operative versus nonoperative treatments, as well as options for operative treatments. Decision was made to proceed with posterior approach total hip arthroplasty t o decrease the risk of morbidity and mortality. Patient understands that hip fracture increases thes e risks within the first year regardless of surgery, but are significantly decreased by having surger y and mobilizing as soon as possible. The patient verbalized understanding of the risks and benefits of procedure, signed informed consent. DESCRIPTION OF PROCEDURE: The patient was seen in the holding area. Operative consent and site were signed. The patient was then taken the operating room. After smooth induction of general anesthesi a, was placed in the lateral decubitus position with the affected hip facing up using pegboard and ax illary roll. The affected hip was prepped and draped in usual sterile fashion. Operative site was c onfirmed by signature. Operative time-out performed. Allergies reviewed. Antibiotics and TXA admin istered. Palpable landmarks, including the greater trochanter were marked out. A longitudinal incision made over the posterior aspect of the greater trochanter. This was carried t hrough the subcutaneous tissue to identify fascia jd, which was incised in line with the incision a nd the gluteus peri was bluntly split. The trochanteric bursa was taken down with Bovie electroca utery. Short external rotators were put on stretch, and the capsulotomy was taken in layers from the insertion of the femur and tagged with FiberWires. Hematoma was evacuated. The femoral head was th en removed. Neck cut was then freshened with an oscillating saw. The femur was exposed in standard fashion. Excess soft tissue was removed from the piriformis fossa using Bovie, and excess neck was r emoved using a box osteotome. Sequential broaching was performed up to the desired sized broach, whi ch had good fit and fill. Trial stem was left in place. The acetabulum was then exposed in standard fashion. The labrum was sharply excised. Ligamentum ter es and acetabular fossa tissue excised with Bovie. Transverse acetabular ligament was identified and preserved. Sequential reaming was performed at the base of the acetabular fossa, sequentially reami ng up to a size 51 for a size 52 cup. The 51 trial was placed prior to final implantation of the 52 mm acetabular shell. Attention was then turned back to the femur. High offset neck trial with 0 and -4 trial combinations were tried, checking stability, motion, and estimated leg length. Final compo nents were determined to be size 5 stem, 127 degree neck angle with a 0 mm head. The final polyethyl kimmie insert with a 10 degree posterior lip liner was impacted into place after irrigating the acetabul ar shell. Final components were then placed. Stability and motion were again confirmed. The capsul e and external rotators were repaired with the 2 drill holes in the greater trochanter. Soft tissues were infiltrated with joint cocktail. Wound was then closed in layers with PDS Quill suture in the fascia jd, 0 PDS Quill suture in the deep subcutaneous fat, and 3-0 Versalok in the dermis. Dermab ond, Steri-Strips were applied, as well as a sterile silver dressing. A hip abduction pillow was [place] between the patient's legs. She was safely awakened, extubated, and taken to recovery room in st able condition. All critical portions of procedure were performed myself, Dr. Hall. This operative note was created by myself, Dr. Hall. I was immediately available for emergency cross-coverage at all times. DRAINS: None. COMPLICATIONS: None. IMPLANTS: Trident II 52 mm acetabular shell with a 36 mm polyethylene insert with a 10 degree chargemaster analyst ior lip liner, Accolade II femoral stem size 5, 127 degrees angle, with 0 mm ceramic V40 femoral head . 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 /[id number]/MODL
== END 2017-11-29 18:43 | DRG 470 ==
LOC: EDUNIT# → UNDOADMIN 14:10 → F3N 20:40
PROVIDERS: ADMIT Internal Medicine; ATTEND Internal Medicine
PROC: 0SR904A Replacement of Right Hip Joint with Ceramic on Polyethylene Synthetic Substitute, Uncemented, Open Approach (ICD-10-PCS; principal; 2017-11-26 16:30)
DX: S72.031A Displaced midcervical fracture of right femur, initial encounter for closed fracture (principal); W01.0XXA Fall on same level from slipping, tripping and stumbling without subsequent striking against object, initial encounter; Y92.015 Private garage of single-family (private) house as the place of occurrence of the external cause; Y99.8 Other external cause status; I10 Essential (primary) hypertension; G60.9 Hereditary and idiopathic neuropathy, unspecified; I65.23 Occlusion and stenosis of bilateral carotid arteries; I70.0 Atherosclerosis of aorta; E03.9 Hypothyroidism, unspecified; E04.1 Nontoxic single thyroid nodule; E78.5 Hyperlipidemia, unspecified; K21.9 Gastro-esophageal reflux disease without esophagitis; Z85.42 Personal history of malignant neoplasm of other parts of uterus; Z90.710 Acquired absence of both cervix and uterus
CPT/HCPCS: 96374; 97116-GP; 97161-GP; 97165-GO; 97530-GO; 97530-GP; 97535-GO; G8978-GP-CJ; G8979-GP-CI; G8987-GO-CK; G8988-GO-CI; J0171; J0690; J1170; J1885; J2405; J2704; J2795; J3010

== ENCOUNTER → 2018-12-06 | Outpatient (CLI) | payer OTHER, MEDICARE | LOC: FIMAGING 12:42 ==